=== PATIENT | female | born 1985 | race Two or more races ===

== ENCOUNTER 2017-04-02 10:19 | Inpatient (IN) | payer OTHER ==
[~2017-04-02] VITALS: Ht 157.5 cm; Wt 114.8 kg
[2017-04-02] MEDS ORDERED: SODIUM CHLORIDE FLUSH 10ML SYR IVF ONE (11:30)
[2017-04-02] MEDS ORDERED: SODIUM CHLORIDE 0.9% 1,000ML IVBOLUS ONE (11:30)
[2017-04-02 11:47] LABS: ASPARTATE AMINO TRANSFERASE 26 U/L (15-37); BLOOD UREA NITROGEN 11 mg/dL (7-18)
[2017-04-02 11:48] LABS: HEMOGLOBIN 7.7 g/dL (11.7-16.4); WHITE BLOOD COUNT 42.7 x10^3/uL (3.4-10)
[2017-04-02 12:14] LABS: DIFF TOTAL CELLS COUNTED 100 CELL DIFF
[2017-04-02 12:41] LABS: HEMATOCRIT 22.2 % (34.6-47.8)
[2017-04-02] MEDS ORDERED: ACETAMINOPHEN 325 MG TABLET PO PRN (16:00)
[2017-04-02] MEDS ORDERED: LABETALOL 5MG/ML, 20ML IVPush PRN (16:00)
[2017-04-02] MEDS ORDERED: ONDANSETRON 2MG/ML, 2ML IVPush PRN (16:00)
[2017-04-02] MEDS ORDERED: ONDANSETRON ODT 4 MG PO PRN (16:00)
[2017-04-02] MEDS ORDERED: BISACODYL 10 MG SUPP PR PRN (16:00)
[2017-04-02 18:21] LABS: HIV 1&2 ANTIBODY SCREEN Nonreactive (Nonreactive); HIV-1 p24 ANTIGEN Nonreactive (Nonreactive)
[2017-04-02 20:37] VITALS: BP 122/77
[2017-04-02] MEDS ORDERED: DOCUSATE 100 MG CAPSULE PO PRN (21:00)
[2017-04-03 02:58] VITALS: BP 93/58
[2017-04-03 04:48] LABS: WHITE BLOOD COUNT 33.6 x10^3/uL (3.4-10)
[2017-04-03 04:56] LABS: HEMATOCRIT 19.8 % (34.6-47.8); HEMOGLOBIN 6.8 g/dL (11.7-16.4)
[2017-04-03 04:58] LABS: ASPARTATE AMINO TRANSFERASE 23 U/L (15-37); BLOOD UREA NITROGEN 9 mg/dL (7-18)
[2017-04-03 05:02] LABS: LACTATE DEHYDROGENASE 379 U/L (84-246)
[2017-04-03 05:07] LABS: DIFF TOTAL CELLS COUNTED 100 CELL DIFF
[2017-04-03 05:09] LABS: VERIFY COUNTS? YES
[2017-04-03 05:10] LABS: ANISOCYTOSIS 1+; MICROCYTOSIS 1+; POLYCHROMASIA 1+; SPHEROCYTES 1+
[2017-04-03 05:11] LABS: LARGE PLATELETS 1+
[2017-04-03] MEDS ORDERED: DIPHENHYDRAMINE 25 MG CAPSULE PO ONE (06:00)
[2017-04-03] MEDS ORDERED: ACETAMINOPHEN 325 MG TABLET PO ONE (06:00)
[2017-04-03 08:11] VITALS: BP 115/65
[2017-04-03 08:59] VITALS: BP 108/52
[2017-04-03 09:28] VITALS: BP 112/51
[2017-04-03] MEDS ORDERED: LORazepam 0.5MG TABLET PO PRN (11:30)
[2017-04-03] MEDS ORDERED: LORazepam 1MG TABLET ONE (11:42)
[2017-04-03 11:54] VITALS: BP 124/49
[2017-04-03] MEDS ORDERED: ZOLPIDEM 5MG TABLET PO PRN (12:00)
[2017-04-03] MEDS ORDERED: LIDOCAINE 1%, 20ML ONE (13:22)
[2017-04-03 14:01] LABS: VERIFY COUNTS? YES
[2017-04-03] MEDS ORDERED: NALOXONE 1 MG/ML, 2ML ONE (14:10)
[2017-04-03] MEDS ORDERED: FLUMAZENIL 0.1 MG/1 ML, 5ML ONE (14:10)
[2017-04-03] MEDS ORDERED: MIDAZOLAM 1 MG/ML, 5ML ONE (14:10)
[2017-04-03] MEDS ORDERED: FENTANYL PF 100 MCG/2ML ONE (14:10)
[2017-04-03 15:28] VITALS: BP 102/45
[2017-04-03] MEDS ORDERED: HYDROcodone/APAP 5/325 TABLET PO PRN ×2 (17:15→18:00)
[2017-04-03 19:04] LABS: HEMATOCRIT 24.7 % (34.6-47.8); HEMOGLOBIN 8.3 g/dL (11.7-16.4)
[2017-04-05 19:06] LABS: HERPES SIMPLEX VIRUS-1 DNA PCR Negative (Negative); HERPES SIMPLEX VIRUS-2 DNA PCR Negative (Negative)
== END 2017-04-03 19:30 | disposition home or self-care (01) | DRG 835 ==
LOC: ED 13:51 → EDIP 13:52 → ED 14:02 → 3NW 16:29
PROVIDERS: ADMIT Internal Medicine; ATTEND Internal Medicine
PROC: 30233N1 Transfusion of Nonautologous Red Blood Cells into Peripheral Vein, Percutaneous Approach (ICD-10-PCS; principal; 2017-04-03)
PROC: 07DR3ZX Extraction of Iliac Bone Marrow, Percutaneous Approach, Diagnostic (ICD-10-PCS; 2017-04-03)
DX: C92.00 Acute myeloblastic leukemia, not having achieved remission (principal); E44.1 Mild protein-calorie malnutrition; K76.0 Fatty (change of) liver, not elsewhere classified; Z68.42 Body mass index [BMI] 45.0-49.9, adult; F17.200 Nicotine dependence, unspecified, uncomplicated; F32.9 Major depressive disorder, single episode, unspecified; F41.9 Anxiety disorder, unspecified; I51.7 Cardiomegaly; E66.01 Morbid (severe) obesity due to excess calories; Z85.72 Personal history of non-Hodgkin lymphomas; Z83.3 Family history of diabetes mellitus
CPT/HCPCS: 36415; 71010; 77012; 80053; 80074; 81001; 83615; 84550; 84703; 85014; 85018; 85025; 85045; 85384; 85610; 85730; 86703; 86850; 86900; 86923; 87086; 87497; 87529; 87899; 88305; 88311; 88313; 88341; 88342; 88360; 93005; 99156; 99157; 99285; G0364; J2250; J3010; J3490; G0435; G0461; J2310; P9040; Q0163